=== PATIENT | male | born 1955 | race Caucasian/White ===

== ENCOUNTER 2020-03-17 22:09 | Inpatient (IN) | payer MEDICAID, OTHER ==
[~2020-03-17] VITALS: Ht 177.8 cm; Wt 72.1 kg
[~2020-03-17 22:09] MED LIST: ASPI-1497 MT; CLOP75TA4 MT; COR3 MT; LIP40 MT
[2020-03-17] MEDS ORDERED: ONDANSETRON HCL 4MG/2ML INJ IV STA (23:40)
[2020-03-17] MEDS ORDERED: SODIUM CHLORIDE 0.9% 250 ML IV ONE (23:45)
[2020-03-18] MEDS ORDERED: HYDROCODONE/ACETAMINOPHEN 5/325MG TABLET PO ONE (00:15)
[2020-03-18 00:23] LABS: BASOPHILS % 0.7 % (0.0-2.0); EOSINOPHILS % 1.8 % (0.0-5.0); HEMATOCRIT. 37.2 % (42.0-52.0); HEMOGLOBIN. 12.5 g/dL (14.0-18.0); LYMPHOCYTES % 13.3 % (20.0-50.0); MEAN CORPUSCULAR HEMOGLOBIN 29.6 pg (28.0-32.0); MEAN PLATELET VOLUME 9.8 fl (7.4-10.4); MONOCYTES % 6.6 % (2.0-8.0); NEUTROPHILS % 77.6 % (40.0-76.0); PLATELET 267 x1000/uL (130-400); RED BLOOD CELL COUNT 4.22 mill/uL (4.7-6.1); RED CELL DISTRIBUTION WIDTH 15.3 % (11.6-14.6)
[2020-03-18 00:34] LABS: CHLORIDE 107 mEq/L (98-107)
[2020-03-18] MEDS ORDERED: MORPHINE SULFATE 4 MG/ML CPJ (NOT FOR IM USE) IV ONE (02:30)
[2020-03-18] MEDS ORDERED: FUROSEMIDE 20MG/2ML VIAL IVP ONE (02:30)
[2020-03-18 04:15] VITALS: BP_SYST 135; BP_SYST 143; BP_DIAS 78
[2020-03-18] MEDS ORDERED: ACETAMINOPHEN 325MG TABLET PO PRN (06:30)
[2020-03-18 08:00] VITALS: BP 123/65
[2020-03-18] MEDS: HYDROCODONE/ACETAMINOPHEN 10/325MG TABLET PO PRN ×3 (09:31→20:54)
[2020-03-18 09:32] LABS: T4 FREE 0.98 ng/dL (0.76-1.46)
[2020-03-18 12:00] VITALS: BP 113/58
[2020-03-18] MEDS ORDERED: SODIUM CHLORIDE 0.45% 1,000 ML IV SCH (14:30)
[2020-03-18 15:47] LABS: BASOPHILS % 0.7 % (0.0-2.0); HEMATOCRIT. 36.3 % (42.0-52.0); HEMOGLOBIN. 12.2 g/dL (14.0-18.0); LYMPHOCYTES % 16.6 % (20.0-50.0); MEAN CORPUSCULAR HEMOGLOBIN 29.7 pg (28.0-32.0); MEAN CORPUSCULAR VOLUME 88.7 fL (80.0-94.0); MEAN PLATELET VOLUME 9.9 fl (7.4-10.4); MONOCYTES % 9.5 % (2.0-8.0); NEUTROPHILS % 70.2 % (40.0-76.0); PLATELET 264 x1000/uL (130-400); RED CELL DISTRIBUTION WIDTH 15.6 % (11.6-14.6)
[2020-03-18 15:51] LABS: CREATINE KINASE MB FRACTION 4.1 ng/mL (0.5-3.6)
[2020-03-18 15:56] LABS: CHLORIDE 105 mEq/L (98-107)
[2020-03-18 16:00] VITALS: BP_SYST 132; BP_SYST 136; BP_DIAS 67; BP_DIAS 80
[2020-03-18 20:00] VITALS: BP 127/71
[2020-03-18] MEDS: CARVEDILOL 3.125 MG TABLET PO SCH (20:52)
[2020-03-18] MEDS: ATORVASTATIN CALCIUM 40MG TABLET PO SCH (20:52)
[2020-03-19] VITALS (7 sets, daily range): BP systolic 105–133; BP diastolic 51–75
[2020-03-19 00:19] LABS: CREATINE KINASE MB FRACTION 3.6 ng/mL (0.5-3.6)
[2020-03-19] MEDS: HYDROCODONE/ACETAMINOPHEN 10/325MG TABLET PO PRN ×4 (03:28→21:55)
[2020-03-19 07:24] LABS: CREATINE KINASE MB FRACTION 3.2 ng/mL (0.5-3.6)
[2020-03-19] MEDS: CARVEDILOL 3.125 MG TABLET PO SCH ×2 (09:42→21:23)
[2020-03-19] MEDS: CLOPIDOGREL 75MG TABLET PO SCH (09:42)
[2020-03-19] MEDS: ASPIRIN 81MG EC TABLET PO SCH (09:42)
[2020-03-19 15:54] LABS: BASOPHILS % 0.9 % (0.0-2.0); EOSINOPHILS % 3.7 % (0.0-5.0); HEMATOCRIT. 33.6 % (42.0-52.0); HEMOGLOBIN. 11.3 g/dL (14.0-18.0); LYMPHOCYTES % 13.9 % (20.0-50.0); MEAN CORPUSCULAR HEMOGLOBIN 29.3 pg (28.0-32.0); MEAN CORPUSCULAR VOLUME 87.4 fL (80.0-94.0); MEAN PLATELET VOLUME 9.9 fl (7.4-10.4); MONOCYTES % 9.8 % (2.0-8.0); NEUTROPHILS % 71.7 % (40.0-76.0); PLATELET 225 x1000/uL (130-400); RED BLOOD CELL COUNT 3.85 mill/uL (4.7-6.1); RED CELL DISTRIBUTION WIDTH 15.1 % (11.6-14.6)
[2020-03-19 16:05] LABS: CHLORIDE 105 mEq/L (98-107)
[2020-03-19] MEDS: FUROSEMIDE 40MG TABLET PO SCH (17:02)
[2020-03-19] MEDS: ATORVASTATIN CALCIUM 40MG TABLET PO SCH (21:23)
[2020-03-20] VITALS (9 sets, daily range): BP systolic 106–155; BP diastolic 63–83
[2020-03-20] MEDS: HYDROCODONE/ACETAMINOPHEN 10/325MG TABLET PO PRN ×4 (03:10→23:00)
[2020-03-20] MEDS: FUROSEMIDE 40MG TABLET PO SCH ×2 (06:50→17:30)
[2020-03-20] MEDS: ASPIRIN 81MG EC TABLET PO SCH (08:30)
[2020-03-20] MEDS: CLOPIDOGREL 75MG TABLET PO SCH (08:30)
[2020-03-20] MEDS: CARVEDILOL 3.125 MG TABLET PO SCH ×2 (08:32→21:52)
[2020-03-20] MEDS ORDERED: FURO80TA87 MT (10:45)
[2020-03-20] MEDS: ATORVASTATIN CALCIUM 40MG TABLET PO SCH (21:52)
[2020-03-21] VITALS: BP 129/70
[2020-03-21 00:06] LABS: BASOPHILS % 0.8 % (0.0-2.0); EOSINOPHILS % 2.8 % (0.0-5.0); HEMATOCRIT. 33.5 % (42.0-52.0); HEMOGLOBIN. 11.3 g/dL (14.0-18.0); LYMPHOCYTES % 12.6 % (20.0-50.0); MEAN CORPUSCULAR HEMOGLOBIN 29.7 pg (28.0-32.0); MEAN CORPUSCULAR VOLUME 87.8 fL (80.0-94.0); MONOCYTES % 8.1 % (2.0-8.0); NEUTROPHILS % 75.7 % (40.0-76.0); PLATELET 220 x1000/uL (130-400); RED BLOOD CELL COUNT 3.81 mill/uL (4.7-6.1)
[2020-03-21 00:17] LABS: CHLORIDE 104 mEq/L (98-107)
[2020-03-21 04:00] VITALS: BP 137/84
[2020-03-21 08:00] VITALS: BP 125/70
[2020-03-21] MEDS: CARVEDILOL 3.125 MG TABLET PO SCH (08:04)
[2020-03-21] MEDS: HYDROCODONE/ACETAMINOPHEN 10/325MG TABLET PO PRN (08:04)
[2020-03-21] MEDS: ASPIRIN 81MG EC TABLET PO SCH (08:04)
[2020-03-21] MEDS: CLOPIDOGREL 75MG TABLET PO SCH (08:04)
[2020-03-21] MEDS ORDERED: FUROSEMIDE 40MG TABLET PO SCH (09:00)
[2020-03-21 10:00] VITALS: BP 125/70
== END 2020-03-21 12:15 | disposition home or self-care (01) | DRG 115 ==
LOC: ER 22:09 → ENRESERV 03-18 03:19 → 6WST 03-18 04:10
PROVIDERS: ADMIT Family Medicine; ATTEND Family Medicine
PROC: 4B02XTZ Measurement of Cardiac Defibrillator, External Approach (ICD-10-PCS; principal; 2020-03-19)
DX: S02.2XXA Fracture of nasal bones, initial encounter for closed fracture (principal); G90.8 Other disorders of autonomic nervous system; R55 Syncope and collapse; J34.2 Deviated nasal septum; N18.9 Chronic kidney disease, unspecified; R07.9 Chest pain, unspecified; G45.8 Other transient cerebral ischemic attacks and related syndromes; S00.212A Abrasion of left eyelid and periocular area, initial encounter; I42.9 Cardiomyopathy, unspecified; W18.30XA Fall on same level, unspecified, initial encounter; M47.812 Spondylosis without myelopathy or radiculopathy, cervical region; M48.02 Spinal stenosis, cervical region; J33.8 Other polyp of sinus; I25.2 Old myocardial infarction; Z95.810 Presence of automatic (implantable) cardiac defibrillator; Z85.828 Personal history of other malignant neoplasm of skin; Z86.73 Personal history of transient ischemic attack (TIA), and cerebral infarction without residual deficits; Z87.891 Personal history of nicotine dependence; Y93.89 Activity, other specified; Y92.89 Other specified places as the place of occurrence of the external cause; Y99.8 Other external cause status
CPT/HCPCS: 36415; 70486; 71045; 78582; 80053; 80061; 82550; 82553; 83036; 83880; 84439; 84443; 84484; 85025; 85379; 93005; 93306; 93880; 93970; 97110; 97116; 97162; 97166; 99285; A9558; J1940; J2270; J2405; J7050